=== PATIENT | female | born 1935 | race Caucasian/White ===

== ENCOUNTER 2023-11-09 17:17 | Outpatient (RCR) | payer OTHER, SELFPAY | END 2023-11-09 23:59 | disposition home or self-care (01) | LOC: RPT 17:17 | PROVIDERS: ATTENDING PHYSICIAN Orthopaedic Surgery; FAMILY PHYSICIAN Internal Medicine | DX: M75.42 Impingement syndrome of left shoulder (principal); Z73.6 Limitation of activities due to disability | CPT/HCPCS: 97161 ==

== ENCOUNTER 2024-04-11 09:51 | Outpatient (RCR) | payer OTHER, SELFPAY | END 2024-04-11 23:59 | disposition home or self-care (01) | LOC: RPT 09:51 | PROVIDERS: ATTENDING PHYSICIAN Orthopaedic Surgery; FAMILY PHYSICIAN Internal Medicine | DX: M75.42 Impingement syndrome of left shoulder (principal); Z73.6 Limitation of activities due to disability | CPT/HCPCS: 97010; 97110; 97162 ==

== ENCOUNTER 2024-04-25 09:51 | Outpatient (RCR) | payer OTHER, SELFPAY | END 2024-04-25 12:27 | disposition home or self-care (01) | LOC: RPT 09:51 | PROVIDERS: ATTENDING PHYSICIAN Orthopaedic Surgery; FAMILY PHYSICIAN Internal Medicine | DX: M75.42 Impingement syndrome of left shoulder (principal); Z73.6 Limitation of activities due to disability | CPT/HCPCS: 97010; 97110 ==

== ENCOUNTER 2024-07-27 02:18 | Observation (INO) | payer OTHER, SELFPAY ==
[2024-07-26 22:46] VITALS: BMI 31.3
[2024-07-26 23:21] LABS: Glucose - Point of Care 127 mg/dl (70-99)
--- NOTE | 2024-07-26 23:28 | ED.CVA ---
History of Present Illness
General
Chief Complaint: CVA/TIA Symptoms
Time Seen by Provider: 07/26/24 23:14
Onset of Stroke Symptoms
Onset of symptoms known: Yes
Date of onset of symptoms: 07/26/24
History of Present Illness
History of Present Illness:
88-year-old female with history of high blood pressure and depression presenting for strokelike symptoms. Patient reports around 1015 this evening she was on her phone in her bed and she kept dropping her phone. She went to the bathroom, felt
wobbly and dropped a glass, shattered. She then went to the kitchen, again felt unsteady so she called her friend who felt like her speech was slurred and told her to go to the hospital. Denies history of stroke. Feels like her speech is now
improved. Denies focal weakness or numbness to extremities. Denies visual changes. Denies additional acute medical complaints
Past History
Past History
ED Past Medical History: HTN, Psychiatric (Depression) and Other (R ankle fx, diverticulitis)
ED Past Surgical History: Other (R ankle surgery)
Patient has exhibited threatening behavior?: No
PSI?: No
Social History
Tobacco: Non-smoker
Alcohol: None
Drug: None
Personal: Single
Living: alone
Employment: Employed
Family History
Family History: Negative Diabetes, Hypertension or CAD
Phy Exam
Physical Exam
Physical Exam:
General: Well-appearing, no clinical signs of dehydration, nontoxic and in no acute distress
HEENT: protecting airway
Neck: appears supple
CV: Normal heart rate, regular rhythm
Resp: No accessory muscle use, no increased work of breathing, lungs clear to auscultation bilaterally
Abd: Soft and non-distended, no tenderness to palpation
Extremities: No deformities, no swelling
Neuro: alert, no focal neurologic deficit
: deferred
Rectal: deferred
Psych: Normal affect
Skin: Intact
Scores
NIH Stroke Score
Level of Consciousness: 0 - Alert
LOC Questions: 0-Answers both correctly
LOC Commands: 0-Performs both correctly
Best Horizontal Gaze: 0-Normal
Visual Rolon: 0=Normal, no visual loss
Facial Palsy: 0=Normal, symmetrical
Motor - Right Arm: 0=No drift 10 seconds
Motor - Left Arm: 0=No drift 10 seconds
Motor - Right Le-No drift 5 seconds
Motor - Left Le-No drift 5 seconds
Limb Ataxia: 0-Absent
Sensation: 0-Normal
Best Language: 0-No aphasia
Dysarthria: 0-Normal
Extinction and Inattention: 0-No abnormality
Total Score:: 0
Course
Orders/Labs/Results
Orders:
Orders
07/26/24 23:15
CT HEAD STROKE ALERT W/o Cont Urgent
Comment: wrong order placed by RN
Reason For Exam: dizziness, headache, dropping objects since 10 PM
07/26/24 23:20
CT HEAD/NECK ANG STROKE ALERT Urgent
Comment:
Reason For Exam: slurred speech, stroke alert
07/26/24 23:22
Complete Blood Count/With Diff Urgent
Comprehensive Metabolic Panel Urgent
Protime/PTT Urgent
07/27/24 01:00
Aspirin 325 mg PO NOW STA
Clopidogrel Bisulfate [Plavix] 75 mg PO NOW STA
07/27/24 01:39
Admit/Transfer Patient As Directed
Co-Sign Provider:
Level of Care: Observation services
Assign to:: Telemetry
Physician / Group: Jared
Diagnosis: CVA / TIA
Reason for Telemetry: CVA/TIA
Date to Stop Telemetry: 07/30/24
Time to Stop Telemetry: 11:00
PRN Pain Medication Management As Directed
May give lesser potent ordered pain med per pt: Yes
preference::
Protocol:: Medication orders for pain may be administered in a
manner that supports deferring to patient preference
when the pt is:
- Requesting an ordered lesser potent pain medication.
Least to most potent pain medications are defined
as: acetaminophen < NSAID < tramadol < opioids
(morphine, oxycodone, hydromorphone).
- Requesting a lesser dose of the same medication IF
ORDERED.
- Requesting a less intrusive route of administration
if both routes are prescribed by the provider (PO <
IV).
07/27/24 01:40
Code Status As Directed
Resuscitation Status: Full Code
07/27/24 02:22
Acetaminophen [Tylenol] 650 mg PO Q4HPRN PRN
07/27/24 02:22
Consult Notification Routine
Specialty to Notify: Neurology
NEUROLOGY CONSULT Routine
Consulting Provider: Ana Goldberg
Was physician already notified: No
Reason for consult: CVA / TIA
B12 [Vitamin B12] Routine
Ferritin Routine
Folate Routine
Glycohemoglobin (HgbA1c) Routine
Iron Routine
TSH Reflex To Free T4 Routine
Total Iron Binding Routine
Activity As Directed
Activity Level: Ambulate
With Assistance
EKG with chest pain [ECG as needed] As Directed
ECG as needed for:: Chest Pain
Hemetest Stools As Directed
I/O [Intake/ Output] As Directed
Frequency: Per unit guidelines
NIH Stroke Scale As Directed
Neurological Checks As Directed
Frequency: q4h
Orthostatic Vital Signs As Directed
Orthostatic VS Frequency: BID
Pneumatic Compression Sleeves As Directed
Type: Knee high
Vital Signs As Directed
Frequency: Per unit guidelines
Weight As Directed
Frequency: Daily
Oxygen Therapy [O2 Therapy] [RESP] Routine
Titrate/Wean O2 to maintain O2 sat greater than (%): 94
Ot Eval And Treat Routine
PT Consult [Pt Eval And Treat] Routine
Activity Level: Ambulate
With Assistance
DX Deep Vein Thrombosis Video Routine
07/27/24 06:00
EKG [Electrocardiogram (*1)] IN AM
Reason for Study: Chest Pain
Regular
Basic Metabolic Panel IN AM
Cardiovascular Evaluation IN AM
Complete Blood Count/No Diff IN AM
MR Brain Without Contrast IN AM
Comment:
Reason For Exam: CVA / TIA
Recent pill cam endoscopy?: No
07/27/24 08:00
Amlodipine [Norvasc] 5 mg PO DAILY
Aspirin Chewable [Low Strength Aspirin] 81 mg PO DAILY
Clopidogrel Bisulfate [Plavix] 75 mg PO DAILY
Escitalopram Oxalate [Lexapro] 10 mg PO DAILY
07/30/24 11:00
DC Protocol for Telemetry ONCE
Abnormal Lab Results
07/26/24 07/26/24
23:20 23:22
Hgb 10.8 L g/dL
(12.0-16.0)
Hct 33.9 L %
(37.0-47.0)
MCV 79.4 L fL
(81.0-99.0)
MCH 25.3 L pg
(27.0-31.0)
MCHC 31.9 L g/dL
(33.0-37.0)
RDW 15.2 H %
(11.5-14.5)
Plt Count 411 H 10^3/uL
(130-400)
Abs Immat Gran (auto) 0.1 H 10^3/uL
(0-0.05)
Absolute Neuts (auto) 8.6 H 10^3/uL
(1.4-6.5)
Absolute Lymphs (auto) 1.1 L 10^3/uL
(1.2-3.4)
Absolute Monos (auto) 0.7 H 10^3/uL
(0.1-0.6)
Neutrophils % 82.3 H %
(42.2-75.2)
Lymphocytes % 10.7 L %
(20.5-51.1)
Carbon Dioxide 20 L mmol/L
(22-30)
BUN 33 H mg/dl
(7-17)
Glucose 123 H mg/dl
(70-99)
POC Glucose 127 H mg/dl
(70-99)
07/26/24 23:22
07/26/24 23:22
Vital Signs
Initial and Last Documented VS:
Initial Vital Signs
Temp
98.4 F
07/26/24 23:20
Last Documented Vital Signs
Temp Pulse Resp BP Pulse Ox
98.4 F 63 17 173/71 96
07/26/24 23:20 07/27/24 02:30 07/27/24 02:30 07/27/24 02:00 07/27/24 02:30
MDM/Problems Addressed
MDM/Problems Addressed:
88-year-old female with history of hypertension presenting for strokelike symptoms that started about an hour prior to arrival. Vital signs on arrival are significant for high blood pressure
On exam patient is resting comfortably, awake, alert. NIH stroke scale of 0. Symptoms appear more consistent with TIA. Stroke alert called, discussed with neurology. Patient sent for CT with likely plan for admission for continued TIA/stroke
workup. Do not feel TNK candidate in the absence of present significant symptoms, NIH stroke scale 0
00:40 -CT shows age-indeterminate lacunar infarcts. CTA negative. Will administer aspirin and Plavix and admit for continued stroke versus TIA workup.
*Critical Care Note
Total Time (30-74mins, 75-104mins- exclusive of procedures): Not Applicable
ED Attending Note
-
Portions of this chart may have been created with voice recognition software.� Occasional wrong word or��sound alike� substitutions may have occurred due to the inherent limitations of voice recognition software.
Discharge Plan
Departure
Patient Disposition: Admit
Date of Disposition: 07/27/24
Time of Disposition: 01:06
Presentation/result/management discussed w/ accepting MD/DO: Hospitalist
Condition: Good
Discharge Problem:
Stroke-like symptoms
Interventions
Interventions:
*Risk Screen - Suicide Last Done: 07/26/24 23:03
*General Assessment Last Done: 07/26/24 23:03
*Neglect/Abuse Screening Last Done: 07/26/24 23:03
ED- Fall Risk Assessment Last Done: 07/26/24 23:03
*ED COVID-19 Vaccine History Last Done: 07/26/24 23:03
ED- Pulmonary Assessment Last Done: 07/26/24 23:15
ED- Neurological Assessment Last Done: 07/26/24 23:15
ED- Cardiac Assessment Last Done: 07/26/24 23:15
ED Swallowing Screen Last Done: 07/27/24 02:22
[2024-07-26 23:35] LABS: % Immature Granulocytes 0.5 % (0-0.5); % Lymphocytes 10.7 % (20.5-51.1); % Monocytes 6.5 % (1.7-9.3); % Neutrophils 82.3 % (42.2-75.2); Absolute Immature Granulocytes 0.1 10^3/uL (0-0.05); Absolute Lymphocytes 1.1 10^3/uL (1.2-3.4); Absolute Monocytes 0.7 10^3/uL (0.1-0.6); Absolute Neutrophils 8.6 10^3/uL (1.4-6.5); Hematocrit 33.9 % (37.0-47.0); Hemoglobin 10.8 g/dL (12.0-16.0); Mean Corp Hgb Conc. 31.9 g/dL (33.0-37.0); Mean Corpuscular Hgb 25.3 pg (27.0-31.0); Mean Corpuscular Volume 79.4 fL (81.0-99.0); Mean Platelet Volume 9.4 fL (7.4-10.4); Nucleated Red Blood Cells % 0 %; Platelet Count 411 10^3/uL (130-400); Red Blood Cell Count 4.27 10^6/uL (4.20-5.40); Red Cell Dist. Width 15.2 % (11.5-14.5); White Blood Cell Count 10.5 10^3/uL (4.8-10.8)
[2024-07-26 23:41] LABS: INR 0.88; PT 12.4 Sec (11.4-14.6)
[2024-07-26 23:42] LABS: APTT 24.2 Sec (23.4-35.0)
[2024-07-26 23:44] VITALS: BP 156/75
[2024-07-26 23:46] LABS: ALT (SGPT) 17 U/L (0-35); AST (SGOT) 33 U/L (14-36); Albumin 4.9 g/dl (3.5-5.0); Alkaline Phosphatase 88 U/L (38-126); Blood Urea Nitrogen 33 mg/dl (7-17); Calcium 9.5 mg/dl (8.4-10.2); Carbon Dioxide 20 mmol/L (22-30); Chloride 105 mmol/L (98-107); Estimated Creatinine Clearance 60 ml/min; Glucose 123 mg/dl (70-99); Potassium 4.4 mmol/L (3.5-5.1); Sodium 136 mmol/L (135-145); Total Bilirubin 0.3 mg/dl (0.2-1.3); Total Protein 7.6 g/dl (6.3-8.2); eGFR > 60.00
[2024-07-27] VITALS (10 sets, daily range): BP systolic 117–173; BP diastolic 62–97; PULSE 65–81
--- NOTE | 2024-07-27 01:42 | HPS.HSE ---
Family Physician
-
Family Physician: Jake Jameson
Chief Complaint
-
Ataxia, Slurred Speech
History of Present Illness
Patient is an 88y F with PMH significant for hypertension who presents to ED complaining of ataxia and slurred speech. Patient states that she was feeling well until around 10PM this evening when she began to have trouble holding her phone.
Patient states that she dropped her phone repeatedly and was unable to use her fingers to operate it well. She began to feel 'jittery'. She went into the bathroom and took and aspirin. She dropped the glass that she used to drink water from.
She felt that her speech was thick and she called a friend who came over. Her friend agreed that her speech was slurred. Patient was also noted to be unsteady on her feet / having difficulty walking.
She did not fall.
She denies any headache, vision changes, numbness / tingling, etc.
She denies any prior history of similar symptoms.
On arrival to the ED, patient felt improved. At present she feels 'tired' but otherwise feels at her baseline.
Patient does note that she had an intra-articular steroid injection to the L shoulder on Tuesday of this week. She has had these in the past with no issue.
Medical History
Past Medical History
Past Medical History: Reports Other
Additional Past Medical History:
Hypertension
Anxiety / Depression
Osteoarthritis
Nephrolithiasis
Past Surgical History: Reports Other
Additional Past Surgical History:
Right Ankle Surgery
Robotic Sigmoid Colectomy
Robotic ANASTACIA / BSO
Right TKA
Social History
Tobacco: Non-smoker
Alcohol: None
Drug: None
Family History
Family History: Other (Mother: CAD, HTN Father: Longevity)
Allergies / Home Medications
Allergies reflects when Allergies were last updated in [facility].
Home Medications with original date entered in [facility]
Allergy/Medication List:
Allergies
Allergy/AdvReac Type Severity Reaction Status Date / Time
seasonal Allergy nasal Uncoded 07/26/24 23:03
congestion
Home Medications
escitalopram oxalate 10 mg tablet 10 mg PO DAILY 08/07/18
acetaminophen 650 mg tablet,extended release (Tylenol Arthritis Pain) 650 mg PO Q8HPRN PRN mild pain 07/26/24
amlodipine 5 mg tablet 5 mg PO DAILY 07/26/24
Review of Systems
-
History Source: Patient
A 12 point ROS was completed and negative except as noted: Yes
Constitutional: Reports Fatigue; Denies Fever or Chills
EENT: Denies Sore Throat
Respiratory: Denies Cough or Trouble Breathing
Cardiac: Denies Chest Pain or Palpitations
Abdomen/GI: Denies Abdominal Pain, Nausea, Vomiting or Diarrhea
: Denies Dysuria or Frequency
Musculoskeletal: Denies Joint Pain or Edema
Neurological: Reports Weakness and Other (Clumsiness); Denies Dizzy, Headache or Numbness
Physical Exam
Vital Signs
Vital Signs
Pulse Resp BP Pulse Ox
76 14 162/86 96
07/27/24 01:15 07/27/24 01:15 07/27/24 01:00 07/27/24 01:15
Physical Exam
General: Other (88y F in no acute distress.)
HEENT: Moist mucous membranes and PERRLA
Respiratory: Clear; No Wheezes, Rales or Rhonchi
Cardiac: S1/S2 and Regular Rhythm; No Murmur
GI: Soft, Non Tender, Non Distended and Normal Bowel Sounds
Musculoskeletal: No Clubbing, No Cyanosis and No Edema
Neuro: AO x 3 and Nonfocal/grossly intact
Laboratory Results
-
07/26/24 23:22
07/26/24 23:22
Laboratory Results
PT 12.4 Sec (11.4-14.6) 07/26/24 23:22
INR 0.88 07/26/24 23:22
APTT 24.2 Sec (23.4-35.0) 07/26/24 23:22
Total Bilirubin 0.3 mg/dl (0.2-1.3) 07/26/24 23:22
AST 33 U/L (14-36) 07/26/24 23:22
ALT 17 U/L (0-35) 07/26/24 23:22
Alkaline Phosphatase 88 U/L (38-126) 07/26/24 23:22
Impression/Plan
-
A/P: Patient is an 88y F with PMH significant for hypertension who presents to ED for evaluation of ataxia and slurred speech.
CVA / TIA
- Observe overnight for further evaluation and treatment.
- Not TNK candidate as her symptoms have resolved.
- Initial CT and CTA were unremarkable.
- BP moderately elevated in the ED and will allow degree of permissive hypertension for now.
- ASA / Plavix daily.
- MRI in AM.
- PT / OT / Neurology evaluations in the AM.
- Monitor overnight for any new / recurrent neurologic symptoms.
Benign Hypertension
- BP moderately elevated in the ED.
- Continue usual home med regimen for now.
- Adjust as needed for goal of normotension prior to discharge.
Microcytic Anemia
- Unknown chronicity with most recent labs for comparison > 2 years ago.
- Check iron studies, heme test stools, etc.
- Follow for changes.
- No gross evidence of bleeding appreciated per patient.
Anxiety / Depression
- Stable. Continue Lexapro.
DVT Prophylaxis: SCDs
Code Status: Full
[2024-07-27] MEDS: PLAVIX 75 MG PO ×2 (01:49→08:02)
[2024-07-27] MEDS: ASPIRIN 325 MG PO (01:49)
[2024-07-27 05:17] LABS: Hematocrit 32.5 % (37.0-47.0); Hemoglobin 10.1 g/dL (12.0-16.0); Mean Corp Hgb Conc. 31.1 g/dL (33.0-37.0); Mean Corpuscular Hgb 25.4 pg (27.0-31.0); Mean Corpuscular Volume 81.7 fL (81.0-99.0); Mean Platelet Volume 9.8 fL (7.4-10.4); Platelet Count 370 10^3/uL (130-400); Red Blood Cell Count 3.98 10^6/uL (4.20-5.40); Red Cell Dist. Width 15.1 % (11.5-14.5); White Blood Cell Count 9.8 10^3/uL (4.8-10.8)
[2024-07-27 05:40] LABS: Blood Urea Nitrogen 27 mg/dl (7-17); Calcium 8.9 mg/dl (8.4-10.2); Carbon Dioxide 21 mmol/L (22-30); Chloride 106 mmol/L (98-107); Estimated Creatinine Clearance 60 ml/min; Glucose 116 mg/dl (70-99); HDL Cholesterol 85 mg/dl; Iron 34 ug/dl (37-170); LDL Cholesterol, Calculated 122 mg/dl; Potassium 4.4 mmol/L (3.5-5.1); Sodium 138 mmol/L (135-145); Total Cholesterol 217 mg/dl (50-199); Triglyceride 52 mg/dl (10-149); Very Low Density Lipoprotein 10 mg/dl (0-30); eGFR > 60.00
[2024-07-27 05:49] LABS: Percent Saturation 7 % (20-50); Total Iron Binding Capacity 431 ug/dl (265-497)
[2024-07-27 06:09] LABS: Ferritin 8.4 ng/ml (11.1-264.0)
[2024-07-27 06:32] LABS: Free T4 0.97 ng/dl (0.78-2.19)
[2024-07-27 06:40] LABS: Folate 9.9 ng/ml (2.76-20); Vitamin B12 266 pg/ml (239-931)
--- NOTE | 2024-07-27 07:27 | CON.NEURO ---
Consultation
Order
Date of Consultation: 07/27/24
Requesting Provider: Isidro Coleman DO
Reason for Consult: CVA/TIA
Neurology Consultation Note.
HPI: This is an 88-year-old woman who presented to [facility] on 07/26/2024 with dysarthria, ataxia and hand weakness. According to the patient she developed transient dysarthria lasting for 15 minutes with associated imbalance and
clumsiness in the right hand. No reports of headaches, change in vision or sensory deficits. The patient was not on aspirin prior to presentation.
ER VS: 156/75-173/71,afebrile
EKG:pending
PDMP:Tramadol Hcl 50 Mg�30 tablets filled in on 05/16/2023, 06/03/2023, 06/28/2023
Labs: LDL-122, Glucose�123, normal sodium, creatinine, WBCs, hemoglobin�10.8,
CT head wo contrast�mild atrophy, no acute infarcts.
CTA head/neck-normal
PMH:HTN, nephrolithiasis, MDD, insomnia, hiatal hernia, Lyme arthriatis, diverticulosis
PSH: Bilateral cataract surgery, robotic sigmoid colectomy, right ankle ORIF, ANASTACIA/BSO, R TKA,
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
FH: Father at the age of 98, mother from coronary artery disease
All:ACEIs,
ROS: Constitutional: Negative. Negative for chills, fever and unexpected weight change.
HENT: Positive intermittent tinnitus
Eyes: Negative. Negative for photophobia, pain and visual disturbance.
Respiratory: Negative for cough, choking and shortness of breath.
Cardiovascular: Negative for chest pain, palpitations and leg swelling.
Gastrointestinal: Negative for abdominal pain and vomiting.
Endocrine: Negative. Negative for cold intolerance.
Genitourinary: Negative for dysuria, flank pain and urgency.
Musculoskeletal: Negative for back pain, gait problem, neck pain and neck stiffness.
Skin: Negative for rash.
Allergic/Immunologic: Negative. Negative for immunocompromised state.
Neurological: Positive for transient ataxia, clumsiness
Psychiatric/Behavioral: Negative for behavioral problems, confusion and hallucinations.
General: Well developed. In no acute distress.
Cardio: Regular rate and rhythm without murmur. Extremities are without cyanosis or edema.
Neuro:
Mental Status: Alert, oriented to person, place, and date. Normal attention and recall. Good fund of knowledge. Follows complex requests across the midline. Comprehension, naming, and repetition intact. Immediate and delayed recall 3/3.
Cranial Nerves: Pupils are equally round, surgical. EOMs full. Visual bowden full to confrontation. No ptosis. No nystagmus. V1-V3 intact to light touch and pinprick bilaterally, symmetric. Face symmetric. Normal hearing AU. The palate
elevated well. SCMs and traps 5/5. Tongue midline. No dysarthria.
Motor: Normal bulk and tone. No pronator or arm drift. Strength 5/5 throughout. No clonus.
Reflexes: 2+ throughout the upper extremities and knees. Plantar responses flexor bilaterally.
Sensory: Normal vibration and JPS at the toes
Coordination: No dysmetria or tremor.
Gait: deferred
Assessment and Plan:
I. TIA
II.HTN
III. DLP
-Continue Telemetry monitoring.
-EKG
-Aspiration precautions.
-Brain MRI wo shaila
-TTE
-Continue ASA 81 mg QD indefinitely.
-Plavix 75 mg QD for 21 days.
-Lipitor 40 mg QHS.
- HbA1C, LDL.
-PT.
-DVT prophylaxis.
I personally reviewed all radiology and labs along with past medical records pertinent to current medical problems. Total time spent in patient care is 62 minutes.
Thank you for allowing us to participate in the care of this patient. We will continue to follow. Please do not hesitate to contact us with any questions or concerns.
Subjective/Objective
Subjective Data
Date of Service: July 27, 2024
Objective Data
Vital Signs
Temp Pulse Resp BP Pulse Ox
36.9 C 66 19 165/62 94
07/26/24 23:20 07/27/24 07:15 07/27/24 07:15 07/27/24 06:00 07/27/24 07:15
Lab Results
07/27/24 04:23
07/27/24 04:23
PT 12.4 Sec (11.4-14.6) 07/26/24 23:22
INR 0.88 07/26/24 23:22
APTT 24.2 Sec (23.4-35.0) 07/26/24 23:22
Sodium 138 mmol/L (135-145) 07/27/24 04:23
Potassium 4.4 mmol/L (3.5-5.1) 07/27/24 04:23
BUN 27 mg/dl (7-17) H 07/27/24 04:23
Glucose 116 mg/dl (70-99) H 07/27/24 04:23
Calcium 8.9 mg/dl (8.4-10.2) 07/27/24 04:23
LDL Cholesterol, Calc 122 mg/dl 07/27/24 04:23
Vitamin B12 266 pg/ml (239-931) 07/27/24 04:23
Patient Allergies
seasonal Allergy (Uncoded 07/26/24 23:03)
nasal congestion
Medications
-
Active Medications
Generic Name Dose Route Start Last Admin
Trade Name Freq PRN Reason Stop Dose Admin
Acetaminophen 650 mg 07/27/24 02:22
Acetaminophen 325 Mg Tablet PO 08/24/24 02:21
Q4HPRN PRN
Mild Pain / Temp > 101
Amlodipine Besylate 5 mg 07/27/24 08:00
Amlodipine 5 Mg Tablet PO 08/24/24 07:59
DAILY NELLA
Aspirin 81 mg 07/27/24 08:00
Aspirin 81 Mg Chewable Tablet PO 08/24/24 07:59
DAILY NELLA
Clopidogrel Bisulfate 75 mg 07/27/24 08:00
Clopidogrel 75 Mg Tablet PO 08/24/24 07:59
DAILY NELLA
Escitalopram Oxalate 10 mg 07/27/24 08:00
Escitalopram 10 Mg Tablet PO 08/24/24 07:59
DAILY NELLA
Home Medications
�Medication �Instructions �Recorded
escitalopram oxalate 10 mg tablet 10 mg PO DAILY 08/07/18
acetaminophen 650 mg 650 mg PO Q8HPRN PRN mild pain 07/26/24
tablet,extended release (Tylenol
Arthritis Pain)
amlodipine 5 mg tablet 5 mg PO DAILY 07/26/24
Vital Signs and Labs
-
Vital Signs and Labs:
Vital Signs
Temp Pulse Resp BP Pulse Ox
36.9 C 66 19 165/62 94
07/26/24 23:20 07/27/24 07:15 07/27/24 07:15 07/27/24 06:00 07/27/24 07:15
Lab Results
07/27/24 04:23
07/27/24 04:23
PT 12.4 Sec (11.4-14.6) 07/26/24 23:22
INR 0.88 07/26/24 23:22
APTT 24.2 Sec (23.4-35.0) 07/26/24 23:22
Sodium 138 mmol/L (135-145) 07/27/24 04:23
Potassium 4.4 mmol/L (3.5-5.1) 07/27/24 04:23
BUN 27 mg/dl (7-17) H 07/27/24 04:23
Glucose 116 mg/dl (70-99) H 07/27/24 04:23
Calcium 8.9 mg/dl (8.4-10.2) 07/27/24 04:23
LDL Cholesterol, Calc 122 mg/dl 07/27/24 04:23
Vitamin B12 266 pg/ml (239-931) 07/27/24 04:23
Medications
-
Medications:
Generic Name Dose Route Start Last Admin
Trade Name Freq PRN Reason Stop Dose Admin
Acetaminophen 650 mg 07/27/24 02:22
Acetaminophen 325 Mg Tablet PO 08/24/24 02:21
Q4HPRN PRN
Mild Pain / Temp > 101
Amlodipine Besylate 5 mg 07/27/24 08:00
Amlodipine 5 Mg Tablet PO 08/24/24 07:59
DAILY NELLA
Aspirin 81 mg 07/27/24 08:00
Aspirin 81 Mg Chewable Tablet PO 08/24/24 07:59
DAILY NELLA
Clopidogrel Bisulfate 75 mg 07/27/24 08:00
Clopidogrel 75 Mg Tablet PO 08/24/24 07:59
DAILY NELLA
Escitalopram Oxalate 10 mg 07/27/24 08:00
Escitalopram 10 Mg Tablet PO 08/24/24 07:59
DAILY NELLA
Home Medications
-
Home Medications
escitalopram oxalate 10 mg tablet 10 mg PO DAILY 08/07/18
acetaminophen 650 mg tablet,extended release (Tylenol Arthritis Pain) 650 mg PO Q8HPRN PRN mild pain 07/26/24
amlodipine 5 mg tablet 5 mg PO DAILY 07/26/24
[2024-07-27] MEDS: NORVASC 5 MG PO (08:03)
[2024-07-27] MEDS: LEXAPRO 10 MG PO (08:03)
[2024-07-27] MEDS: LOW STRENGTH ASPIRIN 81 MG PO (08:03)
--- NOTE | 2024-07-27 09:55 | CM ---
Addendum entered by Argelia Maxwell RN 07/27/24 10:44:
CM met with patient. Patient confirmed demographics. Patient lives independently alone with a pet that she cares for. Patient has had home PT, but cannot remember the agency. Patient denies history of SNF. Patient does not rely on any assistive
devices. Patient uses [facility] or medication services.
PLAN: Home no needs as per PT.
Original Note:
CM reviewed medical records. Patient is pending PT evaluation and MRI. CM discussed discharge with bedside RN. Pending results.
[2024-07-27 11:57] LABS: Glycohemoglobin (HgbA1c) 5.6 % (4.0-5.6)
--- NOTE | 2024-07-27 16:44 | W.PN.UPDATE ---
Update Note
Progress Note Update
Seen by Dr. Coleman this morning
Admitted with CVA symptoms and MRI of the brain ruled in for acute stroke.
Appt neuro input
CW current tx
[2024-07-27] MEDS: LIPITOR 40 MG PO (17:44)
[2024-07-28 03:36] VITALS: BP 160/82
[2024-07-28 03:47] VITALS: BP 156/70
[2024-07-28 06:00] VITALS: BMI 30.8
[2024-07-28 07:00] VITALS: BP 151/84
[2024-07-28 08:22] VITALS: BP 151/84; BP 157/84; BP 161/82; PULSE 72; PULSE 77; PULSE 82
[2024-07-28] MEDS: LOW STRENGTH ASPIRIN 81 MG PO (08:53)
[2024-07-28] MEDS: PLAVIX 75 MG PO (08:53)
[2024-07-28] MEDS: LEXAPRO 10 MG PO (08:53)
[2024-07-28] MEDS: NORVASC 5 MG PO (08:53)
--- NOTE | 2024-07-28 09:29 | W.PN.HOSP.TC ---
Today's Communication/Plan
-
DC
Assessment / Plan
Assessment / Plan
A/P: Patient is an 88y F with PMH significant for hypertension who presents to ED for evaluation of ataxia and slurred speech.
Acute cerebral ischemic infarct
- Not TNK candidate as her symptoms have resolved.
- Initial CT and CTA were unremarkable.
- MRI of the brain shows acute ischemic lacunar infarct in the left thalamus with small amount of cytotoxic edema.
-Echo showed normal EF and no significant valvular abnormalities
-Continue to modify risk factors-increase dose of Norvasc for normotension goal. Start on statin.
-Continue with DAPT for 21 days and then aspirin daily.
-Check PT OT eval and if okay DC patient home today.
Discussed with neurologist to okay with discharge plan..
Benign Hypertension
- BP moderately elevated in the ED.
- Continue usual home med regimen for now.
- Increase the dose of amlodipine.
Microcytic Anemia
- Unknown chronicity with most recent labs for comparison > 2 years ago.
- Iron studies suggest iron deficiency. Patient denies any blood in the stools or dark stools.. She had a history of diverticulitis requiring sigmoid resection in 2019. She says she had a colonoscopy after that with Dr. Wyman. Will give a dose
of IV iron and discharge patient home on iron supplementation. Check heme test stools. Patient advised to return to PCP and arrange for an endoscopy eval.
Anxiety / Depression
- Stable. Continue Lexapro.
DVT Prophylaxis: SCDs
Code Status: Full
DC home after PT eval
More than 30 minutes spent in discharge including
Final examination of the patient
Summarizing hospital stay
Instructions for continuing care to all relevant caregivers
Preparation of discharge records, prescriptions, and referral forms
Total time spent (in minutes): 32
Anticipated Discharge: Today
Subjective/Interval History
-
Date of Service: July 28, 2024
Resolved symptoms of right hand clumsiness, speech disturbance and balance issue. Voices no new specific complaint.
Denies limb weakness.
Denies any headache.
Inquiring about discharge home today.
Objective Data
-
Vital Signs:
Vital Signs
Temp Pulse Resp BP Pulse Ox
98.4 F 72 18 151/84 96
07/28/24 07:00 07/28/24 07:00 07/28/24 07:00 07/28/24 07:00 07/28/24 07:00
Review of Systems
-
Respiratory: Denies Trouble Breathing
Cardiac: Denies Chest Pain or Palpitations
Abdomen/GI: Denies Bloody Stools
Neuro: Denies Dizzy, Headache, Weakness or Numbness
Physical Exam
-
General: Comfortable
Respiratory: Non Labored Respirations; Negative Accessory Resp Muscle Use
Cardiac: Regular Rhythm and S1/S2; Negative Tachycardic (No arrhythmia on the monitor so far)
GI: Soft and Nontender
Neuro: AO x 3 and No Motor Deficits; Negative Slurred Speech or Facial Droop
Psych: Calm; Negative Confused or Agitated
Data Reviewed
-
Diagnostic Radiology: Report Reviewed by me (MRI of the brain and CTA of head and neck)
Labs: Labs Reviewed by me
--- NOTE | 2024-07-28 10:38 | W.PN.NEURO.1 ---
Today's Communication / Plan
-
.
Subjective/Objective
Subjective Data
Date of Service: July 28, 2024
Neurology follow-up note.
Mr. Thomas reports no recurrent dysarthria. She denies having sensory or motor symptoms.
Her blood pressure has improved
CTA head/neck-normal
Brain MRI showed an acute left thalamic infarct
TTE-unremarkable
LDL�122, hemoglobin A1c�5.6
PMH:HTN, nephrolithiasis, MDD, insomnia, hiatal hernia, Lyme arthriatis, diverticulosis
PSH: Bilateral cataract surgery, robotic sigmoid colectomy, right ankle ORIF, ANASTACIA/BSO, R TKA,
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
FH: Father at the age of 98, mother from coronary artery disease
All:ACEIs,
ROS: Constitutional: Negative. Negative for chills, fever and unexpected weight change.
HENT: Positive intermittent tinnitus
Eyes: Negative. Negative for photophobia, pain and visual disturbance.
Respiratory: Negative for cough, choking and shortness of breath.
Cardiovascular: Negative for chest pain, palpitations and leg swelling.
Gastrointestinal: Negative for abdominal pain and vomiting.
Endocrine: Negative. Negative for cold intolerance.
Genitourinary: Negative for dysuria, flank pain and urgency.
Musculoskeletal: Positive for left shoulder chronic pain.
Skin: Negative for rash.
Allergic/Immunologic: Negative. Negative for immunocompromised state.
Neurological: Positive for transient ataxia, clumsiness
Psychiatric/Behavioral: Negative for behavioral problems, confusion and hallucinations.
General: Well developed. In no acute distress.
Cardio: Regular rate and rhythm without murmur. Extremities are without cyanosis or edema.
Neuro:
Mental Status: Alert, oriented to person, place, and date. Normal attention and recall. Good fund of knowledge. Follows complex requests across the midline. Comprehension, naming, and repetition intact. Immediate and delayed recall 3/3.
Cranial Nerves: Pupils are equally round, surgical. EOMs full. Visual bowden full to confrontation. No ptosis. No nystagmus. V1-V3 intact to light touch and pinprick bilaterally, symmetric. Face symmetric. Normal hearing AU. The palate
elevated well. SCMs and traps 5/5. Tongue midline. No dysarthria.
Motor: Normal bulk and tone. No pronator or arm drift. Strength 5/5 throughout except for pain related left arm abduction. No clonus.
Coordination: No dysmetria or tremor.
Gait: deferred
Assessment and Plan:
I. Acute left thalamic infarct. Likely etiology�small vessel disease.
II. HTN
III. DLP
IV. Cervical DDD
-Blood pressure goal�normotension
-Continue ASA 81 mg QD indefinitely.
-Plavix 75 mg QD for 21 days.
-Lipitor 40 mg QHS.
-DVT prophylaxis.
-Outpatient neurology follow-up
I personally reviewed all radiology and labs along with past medical records pertinent to current medical problems. Total time spent in patient care is 37 minutes.
Thank you for allowing us to participate in the care of this patient. Please do not hesitate to contact us with any questions or concerns
Objective Data
Vital Signs
Temp Pulse Resp BP Pulse Ox
36.9 C 72 18 151/84 96
07/28/24 07:00 07/28/24 07:00 07/28/24 07:00 07/28/24 07:00 07/28/24 07:00
Lab Results
07/27/24 04:23
07/27/24 04:23
PT 12.4 Sec (11.4-14.6) 07/26/24 23:22
INR 0.88 07/26/24 23:22
APTT 24.2 Sec (23.4-35.0) 07/26/24 23:22
Sodium 138 mmol/L (135-145) 07/27/24 04:23
Potassium 4.4 mmol/L (3.5-5.1) 07/27/24 04:23
BUN 27 mg/dl (7-17) H 07/27/24 04:23
Glucose 116 mg/dl (70-99) H 07/27/24 04:23
Calcium 8.9 mg/dl (8.4-10.2) 07/27/24 04:23
LDL Cholesterol, Calc 122 mg/dl 07/27/24 04:23
Vitamin B12 266 pg/ml (239-931) 07/27/24 04:23
Patient Allergies
seasonal Allergy (Uncoded 07/26/24 23:03)
nasal congestion
Vital Signs and Labs
-
Vital Signs and Labs:
Vital Signs
Temp Pulse Resp BP Pulse Ox
36.6 C 72 18 128/71 96
07/28/24 11:37 07/28/24 11:37 07/28/24 11:37 07/28/24 11:37 07/28/24 11:37
Lab Results
07/27/24 04:23
07/27/24 04:23
PT 12.4 Sec (11.4-14.6) 07/26/24 23:22
INR 0.88 07/26/24 23:22
APTT 24.2 Sec (23.4-35.0) 07/26/24 23:22
Sodium 138 mmol/L (135-145) 07/27/24 04:23
Potassium 4.4 mmol/L (3.5-5.1) 07/27/24 04:23
BUN 27 mg/dl (7-17) H 07/27/24 04:23
Glucose 116 mg/dl (70-99) H 07/27/24 04:23
Calcium 8.9 mg/dl (8.4-10.2) 07/27/24 04:23
LDL Cholesterol, Calc 122 mg/dl 07/27/24 04:23
Vitamin B12 266 pg/ml (222-852) 07/27/24 04:23
Medications
-
Medications:
Generic Name Dose Route Start Last Admin
Trade Name Freq PRN Reason Stop Dose Admin
Acetaminophen 650 mg 07/27/24 02:22
Acetaminophen 325 Mg Tablet PO 08/24/24 02:21
Q4HPRN PRN
Mild Pain / Temp > 101
Amlodipine Besylate 10 mg 07/29/24 08:00
Amlodipine 10 Mg Tablet PO 08/26/24 07:59
DAILY NELLA
Aspirin 81 mg 07/27/24 08:00 07/28/24 08:53
Aspirin 81 Mg Chewable Tablet PO 08/24/24 07:59 81 mg
DAILY NELLA Administration
Atorvastatin Calcium 40 mg 07/27/24 18:00 07/27/24 17:44
Atorvastatin (Lipitor) 20 Mg Tablet PO 08/24/24 17:59 40 mg
QPM NELLA Administration
Clopidogrel Bisulfate 75 mg 07/27/24 08:00 07/28/24 08:53
Clopidogrel 75 Mg Tablet PO 08/24/24 07:59 75 mg
DAILY NELLA Administration
Escitalopram Oxalate 10 mg 07/27/24 08:00 07/28/24 08:53
Escitalopram 10 Mg Tablet PO 08/24/24 07:59 10 mg
DAILY NELLA Administration
Ferric Sodium Gluconate 110 mls @ 110 mls/hr 07/28/24 14:00 07/28/24 11:23
Complex 125 mg/ Sodium IV 08/01/24 14:59 110 mls
Chloride DAILY@1400 NELLA Administration
Home Medications
-
Home Medications
escitalopram oxalate 10 mg tablet 10 mg PO DAILY 08/07/18
acetaminophen 650 mg tablet,extended release (Tylenol Arthritis Pain) 650 mg PO Q8HPRN PRN mild pain 07/26/24
amlodipine 10 mg tablet 10 mg PO DAILY #30 tabs 07/28/24
aspirin 81 mg chewable tablet 81 mg PO DAILY #30 tabs 07/28/24
atorvastatin 20 mg tablet 40 mg (2 x 20 mg) PO QPM #30 tabs 07/28/24
clopidogrel 75 mg tablet 75 mg PO DAILY #19 tabs 07/28/24
ferrous sulfate 325 mg (65 mg iron) tablet 325 mg PO DAILY #30 tabs 07/28/24
[2024-07-28] MEDS: FERRLECIT 110 MG IV (11:23)
[2024-07-28 11:37] VITALS: BP 128/71
--- NOTE | 2024-07-28 16:41 | W.DCSUMMARY ---
Discharge Summary
Discharge Data
Date of Admission: 07/27/24
Date of Discharge: 07/28/24
-
Pending Results: No
Hospital Course
Primary diagnosis:
Acute left thalamus ischemic infarct
Microcytic anemia with iron deficiency hyperlipidemia
Secondary diagnosis:
Essential hypertension
Anxiety/depression
Hospital course:
Patient presented with acute onset of ataxia and slurred speech which were very short-lived and was concern for TIA. MRI of the brain did show acute left thalamus infarct . She had no recurrence of symptoms. She had CTA of the head and neck which
did not show any evidence of anterior circulation major vessel occlusion. She had an echo which showed normal EF and no significant valve abnormalities. While show on telemetry there was no evidence of A-fib or arrhythmia. Her LDL was 122. Her
blood pressure was in 150s systolic. Dose of amlodipine was increased from 5 to 10 mg.
Seen by neurology who recommended DAPT for 21 days and then continue with aspirin. Started on statin therapy. Her hemoglobin A1c was 5.6.
There is mild anemia with hemoglobin around 10.8. Mild microcytosis of 79.4. Iron studies showed percent saturation of 7 with iron of 34 TIBC of 431 worsening iron deficiency. She had sigmoid resection for diverticulitis in 2019 and states that
she had a colonoscopy after that. She was given a dose of IV Venofer and was put on IV oral iron. Advised to get a follow-up with GI as an outpatient. She denied having any rectal bleeding or blood in the stools.
Consultants on board:
Neurology Dr. Ashlyn V
Discharge Plan
-
Patient Disposition: Home (Routine Discharge)
Discharge Diagnosis/Procedures: Acute left thalamus infarct
Condition: Fair
Diet: Low Cholesterol
Activity: As tolerated
Driving Restrictions: Not until seen by your Dr
Bathing Restrictions: None
Referrals:
Ana Goldberg MD [Active] - in one month
Jake Jameson MD [Family Provider] - in less than 1 week
Prescriptions:
New
amlodipine 10 mg Tablet
10 mg PO DAILY Qty: 30 0RF
Rx Instructions:
dose increased on this admission
atorvastatin 20 mg Tablet
40 mg PO QPM Qty: 30 0RF
aspirin 81 mg Tablet,Chewable
81 mg PO DAILY Qty: 30 0RF
clopidogrel 75 mg Tablet
75 mg PO DAILY Qty: 19 0RF
ferrous sulfate 325 mg (65 mg iron) tablet
325 mg PO DAILY Qty: 30 0RF
Continued
escitalopram oxalate 10 MG tablet
10 mg PO DAILY
acetaminophen [Tylenol Arthritis Pain] 650 mg Tablet Extended Release
650 mg PO Q8HPRN PRN (Reason: mild pain)
Discontinued
amlodipine 5 mg Tablet
5 mg PO DAILY
Discharge Orders:
Discharge Patient (As Directed); Ordered 07/28/24
Ordered By: Rafael Lawton
Discharge Date and Time
Discharge Date/Time: 07/28/24 16:06
Print Language: HUNGARIAN
== END 2024-07-28 16:06 | disposition home or self-care (01) ==
LOC: 4 WEST ACU 02:18
PROVIDERS: Student in an Organized Health Care Education/Training Program; ADMITTING PHYSICIAN Hospitalist; ATTENDING PHYSICIAN Internal Medicine; CONSULT PHYSICIAN Psychiatry & Neurology Neurology; EMERGENCY PHYSICIAN Student in an Organized Health Care Education/Training Program; FAMILY PHYSICIAN Internal Medicine
DX: I63.81 Other cerebral infarction due to occlusion or stenosis of small artery (principal); G93.6 Cerebral edema; F32.A Depression, unspecified; I10 Essential (primary) hypertension; I67.81 Acute cerebrovascular insufficiency; M50.021 Cervical disc disorder at C4-C5 level with myelopathy; M48.02 Spinal stenosis, cervical region; M50.022 Cervical disc disorder at C5-C6 level with myelopathy; R07.9 Chest pain, unspecified; G31.9 Degenerative disease of nervous system, unspecified; R27.0 Ataxia, unspecified; R47.1 Dysarthria and anarthria; D50.9 Iron deficiency anemia, unspecified; E78.5 Hyperlipidemia, unspecified; F41.9 Anxiety disorder, unspecified; R47.81 Slurred speech; M19.90 Unspecified osteoarthritis, unspecified site; Z87.442 Personal history of urinary calculi; Z90.49 Acquired absence of other specified parts of digestive tract; Z96.651 Presence of right artificial knee joint; Z79.02 Long term (current) use of antithrombotics/antiplatelets; Z79.82 Long term (current) use of aspirin; Z82.49 Family history of ischemic heart disease and other diseases of the circulatory system; Z60.2 Problems related to living alone
CPT/HCPCS: 70450; 70496; 70498; 70551; 80048; 80053; 80061; 82607; 82728; 82746; 82962; 83036; 83540; 83550; 84439; 84443; 85025; 85027; 85610; 85730; 93306; 99285; G0378; J2916; Q9967